=== PATIENT | female | born 1955 | race African-American/Black ===

== ENCOUNTER 2017-10-22 11:44 | Emergency (ER) | payer OTHER ==
[~2017-10-22] VITALS: Ht 154.9 cm; Wt 60.3 kg
[~2017-10-22 11:44] MED LIST: ONDA4TAB5 PO
[2017-10-22] MEDS ORDERED: SODIUM CHLORIDE 0.9% 500 ML IVB ONE (11:50)
[2017-10-22 13:54] LABS: Hemoglobin 12.7 g/dL (12.2-16.2); White Blood Cell 2.3 10^3/uL (4.4-10.8)
[2017-10-22 13:56] LABS: Hematocrit 38.1 % (36.0-46.0); Mean Corpuscular Hemoglobin 27.1 pg (28.0-32.0); Mean Corpuscular Hgb Conc. 33.2 g/dL (32.0-36.0); Mean Corpuscular Volume 81.5 fL (80.0-100.0); Platelet Count (auto) 138 10^3/uL (140-450); Red Blood Cells 4.68 10^6/uL (4.0-5.20)
[2017-10-22 14:00] LABS: Band Neutrophils % (manual) 0; Basophils % (manual) 0 (0.0-2.0); Blast Cells 0; Eosinophils % (manual) 0 (0-7); Metamyelocytes % 0; Myelocytes % 0; Promyelocytes % 0; Reactive Lymphocytes 0
[2017-10-22 14:28] LABS: Albumin 3.1 g/dL (3.4-5.0); BUN/Creatinine Ratio 13.7; Bilirubin, Total 0.7 mg/dL (0.2-1.0); Calcium 8.5 mg/dL (8.5-10.1); Magnesium 2.4 mg/dL (1.6-2.6); Potassium 3.1 mmol/L (3.5-5.1); Total Protein 7.7 g/dL (6.4-8.2)
[2017-10-22] MEDS ORDERED: POTASSIUM CHL 20MEQ/100ML 100 ML IV ONE (15:00)
[2017-10-22 15:28] LABS: Lymphocytes % (manual) 80 (10.0-50.0); Monocytes % (manual) 17 (0-12)
[2017-10-22] MEDS ORDERED: HYDROcodone-ACET 10/325MG TAB PO ONE (16:15)
[2017-10-22 19:30] VITALS: BP 95/65
== END 2017-10-22 19:32 | disposition home or self-care (01) ==
LOC: EDBD 11:44 → ER 11:44
DX: R10.32 Left lower quadrant pain (principal); D72.819 Decreased white blood cell count, unspecified; E87.6 Hypokalemia; M19.90 Unspecified osteoarthritis, unspecified site; F17.210 Nicotine dependence, cigarettes, uncomplicated; Z90.710 Acquired absence of both cervix and uterus; Z88.6 Allergy status to analgesic agent
CPT/HCPCS: 36415; 74176; 80053; 82150; 83690; 83735; 85007; 85027; 94761; 96365; 96366; 99285; J3480; J7040

== ENCOUNTER 2018-08-17 02:41 | Emergency (ER) | payer OTHER ==
[~2018-08-17] VITALS: Ht 157.5 cm; Wt 49.9 kg
[2018-08-17 04:07] LABS: Hematocrit 30.8 % (36.0-46.0)
[2018-08-17 04:09] LABS: Mean Corpuscular Hemoglobin 25.4 pg (28.0-32.0); Mean Corpuscular Hgb Conc. 32.6 g/dL (32.0-36.0); Mean Corpuscular Volume 77.9 fL (80.0-100.0); Platelet Count (auto) 138 10^3/uL (140-450); Red Blood Cells 3.95 10^6/uL (4.0-5.20); White Blood Cell 2.2 10^3/uL (4.4-10.8)
[2018-08-17 04:29] LABS: Albumin 2.9 g/dL (3.4-5.0); Anion Gap 9 (5-15); Blood Urea Nitrogen 11 mg/dL (7-18); Calcium 8.2 mg/dL (8.5-10.1); Carbon Dioxide 23 mmol/L (21-32); Chloride 106 mmol/L (98-107); Glucose 137 mg/dL (74-106); Potassium 3.3 mmol/L (3.5-5.1); Sodium 138 mmol/L (136-145)
[2018-08-17 04:36] LABS: Alanine Aminotransferase 16 U/L (13-56); Alkaline Phosphatase 90 U/L (45-117); Aspartate Aminotransferase 16 U/L (15-37); BUN/Creatinine Ratio 15.5; Bilirubin, Total 0.6 mg/dL (0.2-1.0); GFR African American 108 mL/min; GFR Non-African American 89 mL/min; Total Protein 7.4 g/dL (6.4-8.2)
[2018-08-17 04:39] LABS: Basophils % (manual) 0 (0.0-2.0); Blast Cells 0; Metamyelocytes % 0; Myelocytes % 0; Promyelocytes % 0
[2018-08-17 05:25] LABS: Band Neutrophils % (manual) 1; Eosinophils % (manual) 1 (0-7); Lymphocytes % (manual) 76 (10.0-50.0); Monocytes % (manual) 17 (0-12); Reactive Lymphocytes 1
[2018-08-17] MEDS ORDERED: FERROUS SULFATE 325 MG TAB PO ONE (07:30)
[2018-08-17 08:08] VITALS: BP 102/71
== END 2018-08-17 08:14 | disposition home or self-care (01) ==
LOC: ER 02:43
DX: R42 Dizziness and giddiness (principal); D64.9 Anemia, unspecified; I10 Essential (primary) hypertension; M19.90 Unspecified osteoarthritis, unspecified site; F17.210 Nicotine dependence, cigarettes, uncomplicated; Z88.6 Allergy status to analgesic agent; Z88.8 Allergy status to other drugs, medicaments and biological substances; Z90.710 Acquired absence of both cervix and uterus
CPT/HCPCS: 36415; 80053; 82962; 83880; 84484; 85007; 85027; 93005

== ENCOUNTER 2018-09-27 15:16 | Emergency (ER) | payer OTHER ==
[~2018-09-27] VITALS: Ht 160 cm; Wt 49.9 kg
[2018-09-27] MEDS ORDERED: EPINEPHrine HCL 1 MG/10 ML SYRG IV ONE (15:22)
[2018-09-27] MEDS ORDERED: SODIUM BICARBONATE 8.4% INJ 50ML SYRINGE IV ONE ×2 (15:22)
[2018-09-27] MEDS ORDERED: CALCIUM CHL(10%) 100MG/ML 10ML VIAL IV ONE (15:22)
[2018-09-27 16:05] LABS: Hematocrit 39.7 % (36.0-46.0); Hemoglobin 12.5 g/dL (12.2-16.2); Mean Corpuscular Hemoglobin 25.8 pg (28.0-32.0); Mean Corpuscular Hgb Conc. 31.6 g/dL (32.0-36.0); Mean Corpuscular Volume 81.6 fL (80.0-100.0); Platelet Count (auto) 115 10^3/uL (140-450); Red Blood Cells 4.86 10^6/uL (4.0-5.20); White Blood Cell 3.3 10^3/uL (4.4-10.8)
[2018-09-27 16:19] LABS: Albumin 2.1 g/dL (3.4-5.0); Calcium 8.1 mg/dL (8.5-10.1)
[2018-09-27 16:20] LABS: BUN/Creatinine Ratio 9.6; Bilirubin, Total 0.7 mg/dL (0.2-1.0); Total Protein 6.5 g/dL (6.4-8.2)
[2018-09-27] MEDS ORDERED: MIDAZOLAM DRIP 50 mg/50mL 50 ML IV SCH (16:20)
[2018-09-27] MEDS ORDERED: SODIUM CHLORIDE 0.9% 1,000 ML IV ONE (16:20)
[2018-09-27 16:26] LABS: Potassium 2.8 mmol/L (3.5-5.1)
[2018-09-27] MEDS ORDERED: MIDAZOLAM DRIP 50 mg/50mL 50 ML IV ONE (16:26)
[2018-09-27 16:28] LABS: Band Neutrophils % (manual) 0; Basophils % (manual) 0 (0.0-2.0); Blast Cells 0; Eosinophils % (manual) 0 (0-7); Myelocytes % 0; Promyelocytes % 0; Red Cell Distribution Width 22.8 % (11.8-14.3)
[2018-09-27 16:29] LABS: Lymphocytes % (manual) 75 (10.0-50.0); Metamyelocytes % 2; Monocytes % (manual) 12 (0-12); Reactive Lymphocytes 2
[2018-09-27 16:40] LABS: Magnesium 2.4 mg/dL (1.6-2.6)
[2018-09-27] MEDS ORDERED: NOREPINEPHRINE 8 MG/250ML KIT 250 ML IV ONE (16:58)
[2018-09-27] MEDS ORDERED: POTASSIUM CHL 20MEQ/100ML 100 ML IV ONE (17:07)
[2018-09-27] MEDS: POTASSIUM CHLORIDE 40 MEQ in D5W 5% 1,000 ML IV SCH ×4 (17:09→18:17)
[2018-09-27] MEDS ORDERED: POTASSIUM CHL 20MEQ/100ML 100 ML IV SCH (17:15)
[2018-09-27] MEDS ORDERED: EPINEPHrine HCL 1 MG/10 ML SYRG ONE (17:16)
[2018-09-27] MEDS ORDERED: SODIUM BICARBONATE 8.4% INJ 50ML SYRINGE ONE (17:17)
[2018-09-27] MEDS ORDERED: PIPERACILLIN-TAZOB 3.375GM 100 ML IV ONE (17:45)
[2018-09-27 18:06] VITALS: BP 113/78
[2018-09-27] MEDS ORDERED: NOREPINEPHRINE 8 MG/250ML KIT 250 ML IV SCH ×2 (18:30)
[2018-09-27] MEDS ORDERED: SODIUM CHLORIDE 0.9% 3,000 ML IV ONE (18:30)
[2018-09-27 18:54] LABS: INR 2.49 (0.9-1.15); Prothrombin Time 25.3 sec (9.27-12.13)
[2018-09-27 19:05] LABS: Partial Thromboplastin Time 113.4 sec (23.78-33.04)
== END 2018-09-27 23:36 | disposition expired ==
LOC: EDBD 15:16 → ER 15:21
DX: I46.9 Cardiac arrest, cause unspecified (principal); A41.9 Sepsis, unspecified organism; C91.90 Lymphoid leukemia, unspecified not having achieved remission; D70.9 Neutropenia, unspecified; E11.40 Type 2 diabetes mellitus with diabetic neuropathy, unspecified; E87.6 Hypokalemia
CPT/HCPCS: 31500; 36415; 36600; 51702; 70450; 71045; 74176; 80053; 82150; 82805; 83690; 83735; 84443; 84484; 85007; 85027; 85379; 85610; 85730; 87040; 87070; 87076; 87077; 87186; 87205; 93005; 96361; 96365; 96366; 99291; J0171; J2250; J3480; J7030; J7070; 94002